=== PATIENT | male | born 1970 | race Caucasian/White ===

== ENCOUNTER 2024-03-30 12:44 | Outpatient (REF) | payer BC, SELFPAY ==
[2024-03-30 19:38] LABS: ALT 70 U/L (16-63); AST 39 U/L (15-37); Albumin 4.1 g/dL (3.4-5.0); Alkaline Phosphatase 58 U/L (46-116); Anion Gap 4.5 mmol/L (3-11); BUN 17 mg/dL (7-18); CO2 24.5 mmol/L (21.0-32.0); CREATININE 0.9 mg/dL (0.70-1.30); Calcium 9.3 mg/dL (8.5-10.1); Calculated LDL 121 mg/dL (<100); Chloride 104 mmol/L (98-107); Cholesterol 229 mg/dL (<200); Estimated GFR 100.24 (mL/min/1.73m2); Glucose 110 mg/dL (74-106); HDL Cholesterol 45 mg/dL (40-60); Potassium 4.6 mmol/L (3.5-5.1); Sodium 133 mmol/L (136-145); TSH 4.28 uIU/Ml (0.36-3.74); Total Protein 7.8 g/dL (6.4-8.2); Triglyceride 315 mg/dL (<150)
== END 2024-03-30 12:45 | disposition home or self-care (01) ==
LOC: NCHCN 12:44
PROVIDERS: Visit Provider Nurse Practitioner Family
DX: I10 Essential (primary) hypertension (principal); E03.9 Hypothyroidism, unspecified
CPT/HCPCS: 80053; 80061; 84443